=== PATIENT | female | born 1970 | race Caucasian/White ===

== ENCOUNTER 2016-09-23 | Observation (INO) ==
[2016-09-23 00:28] LABS: Basophils # 0.1 K/mcL (0.0-0.2); Basophils % 0.6 %; Eosinophils # 0.1 K/mcL (0.0-0.6); Eosinophils % 1.1 %; Hematocrit 46.7 % (35.3-44.9); Hemoglobin 15.7 g/dL (11.5-15.4); Immature Granulocytes % 0.4 % (0-4); Lymphocytes % 28.6 %; Mean Corpuscular HGB Conc 33.6 g/dL (31.6-35.5); Mean Corpuscular Hemoglobin 29.3 pg (28.0-33.3); Mean Corpuscular Volume 87.1 fL (83.0-100.0); Mean Platelet Volume 9.2 fL (9.4-12.4); Monocytes # 0.6 K/mcL (0.0-1.3); Monocytes % 5.5 %; Neutrophils # 6.7 K/mcL (1.6-8.9); Platelet Count 222 K/mcL (140-400); Red Blood Count 5.36 M/mcL (3.82-4.97); Red Cell Distribution Width 12.7 % (11.5-14.5); Segmented Neutrophils % 63.8 %
[2016-09-23 00:40] LABS: BUN/Creatinine Ratio 15 (6-26); Blood Urea Nitrogen 14 mg/dL (7-20); Calcium 9.4 mg/dL (8.6-10.8); Carbon Dioxide 25 mEq/L (19-29); Chloride 103 mEq/L (98-109); Glucose 120 mg/dL (70-99); Osmolality,Calculated 280 (280-300); Potassium 4.1 mEq/L (3.5-4.5); Sodium 134 mEq/L (136-145); eGFR For African Americans > 60 (> 60); eGFR For Non-African Americans > 60 (> 60)
[2016-09-23] MEDS ORDERED: Aspirin 81 MG TAB.CHEW PO STA (02:38)
[2016-09-23] MEDS ORDERED: Aspirin 81 MG TAB.CHEW ONE (02:40)
[2016-09-23] MEDS ORDERED: Nitroglycerin 0.4 MG TAB.SUBL SL ONE (02:43)
--- NOTE | 2016-09-23 02:51 | Emergency Department Note ---
Disposition Clinical Impression: Chest pain Qualifiers: Chest pain type: unspecified Qualified Code(s): R07.9 - Chest pain, unspecified Disposition: Admitted As Inpatient Condition: Fair Referrals: Milad Rollins CNP [Primary Care Provider] - Forms: ED Satisfaction Letter Time of Disposition: 03:42 Chest Pain HPI - General Chief Complaint: ED Chest Pain Stated Complaint: chest pain Time Seen by Provider: 09/23/16 02:33 Source: patient Mode of arrival: ambulatory Limitations: no limitations Vital Signs Reviewed: Yes Nursing Notes Reviewed: Yes - History of Present Illness HPI Narrative: 46-year-old female with smoking, hypertension, family history of NV, presents with episode of chest pain left-sided chest, associated with nausea vomiting diaphoresis, this happened at rest at 9:00 this evening. She was initially having 6 out of 10 crushing pressure, chest pain, its gradually improved to 2 out of 10. She came in by private vehicle to the emergency department for evaluation, she has never had a catheter or stress test. She denies fever chills productive cough, diarrhea constipation hematuria or dysuria. Pt complaint: chest pain Duration: constant Onset: during rest Pain Location: substernal, left chest Severity: mild Severity scale (1-10): 3 Improves with: nothing Worsens with: nothing Associated symptoms: Reports: nausea, vomiting, diaphoresis, dyspnea Treatments prior to arrival chest pain: none - Related Data Home Medications Medication Instructions Recorded Confirmed Hydrocodone/Acetaminophen [[place] 1 tab PO BID PRN 08/06/15 02/16/16 5-325 Tablet] Melatonin 10 mg PO HS 08/06/15 02/16/16 Montelukast [Singulair] 10 mg PO DAILY 08/06/15 02/16/16 Oxybutynin Chloride [Ditropan Xl] 10 mg PO HS 01/10/16 02/16/16 Biotin 1 mg PO DAILY 02/06/16 02/16/16 Buspirone HCl [Buspar] 20 mg PO TID 02/06/16 02/16/16 HydrOXYzine 10 mg PO TID PRN 02/06/16 02/16/16 Methocarbamol [Robaxin-750] 750 mg PO TID 02/06/16 02/16/16 Mirabegron [Myrbetriq] 50 mg PO HS 02/06/16 02/16/16 Propranolol [Inderal] 20 mg PO BID 02/06/16 02/16/16 diazePAM [Valium] 5 mg PO DAILY PRN MDD 10mg in 24 02/06/16 02/16/16 hours lamoTRIgine [Lamotrigine] 200 mg PO BID 02/06/16 02/16/16 Trazodone HCl 100 mg PO HS PRN 02/16/16 02/16/16 Previous Rx's Medication Instructions Recorded Docusate [Colace] 100 mg PO BID #60 capsule 02/06/16 Clindamycin [Cleocin] 300 mg PO Q6HR 3 Days 02/16/16 Oxycodone HCl/Acetaminophen 1 each PO Q4H PRN #15 tablet 02/16/16 [Percocet 5-325 mg Tablet] Allergies Allergy/AdvReac Type Severity Reaction Status Date / Time Sulfa (Sulfonamide Allergy Difficulty Verified 09/23/16 00:14 Antibiotics) Breathing Penicillins AdvReac See Verified 09/23/16 00:14 Comments All systems ED: reviewed and negative except as stated. Review of Systems: As Per HPI Constitutional: Denies: fever, chills Cardiovascular: Reports: as per HPI, chest pain, dyspnea on exertion. Denies: edema, syncope Respiratory: Reports: as per HPI, cough Gastrointestinal: Reports: nausea, vomiting Genitourinary: Denies: urgency, dysuria Musculoskeletal: Denies: back pain, neck pain Integumentary: Denies: rash Neurological: Denies: headache, weakness Psychiatric: Denies: anxiety, depression Endocrine: Denies: fatigue Chest Pain PMH - Past Medical History Medical history: Reports: COPD, GERD, other Surgical history: Reports: hysterectomy, orthopedic, other, other Psychiatric history: Reports: anxiety, depression MEDIATOR history: Reports: no MEDIATOR history - Social History Smoking Status: Current every day smoker Alcohol use: Reports: none Drug use: Reports: none Physical Exam Constitutional: alert and oriented, in NAD, vital signs reviewed and wnl Neck: normal inspection, neck is supple, no JVD Resp: normal chest inspection, CTA bilaterally, no resp distress, no wheezes/ rales/rhonchi CV: RRR, no murmurs/gallops/rubs, S1 and S2 heard Extremity: +2 bilateral radial and posterial tibial pulses, no pedal edema GI: normal inspection, Soft, NTND, no peritoneal signs, no palpable abdominal aortic aneurysm Back: normal inspection, no tenderness to palpation Neuro: A&O3, no gross motor or sensory deficits bilaterally MSK: normal inspection, bilateral UE and LE with normal ROM Skin: No rashes, skin warm, dry, intact - General General appearance: alert, in no apparent distress Course Course Narrative: 46-year-old female with highly suspicious story, 3 risk factors including family history smoking and obesity, and age, given her heart score of 5. Chest pain arrest, causing her to be diaphoretic, and vomit, added nitroglycerin, her pains improved in the ED to 2. - Reevaluation(s) Reevaluation #1: Admitted to Dr. Perez in stable condition. Time: 03:38 Vital Signs Temperature 97.5 F L 09/23/16 00:11 Pulse Rate 86 09/23/16 00:11 Respiratory Rate 16 09/23/16 00:11 Blood Pressure 129/83 09/23/16 00:11 O2 Sat by Pulse Oximetry 95 09/23/16 00:11 Temperature 97.5 F L 09/23/16 00:11 Pulse Rate 75 09/23/16 02:34 Respiratory Rate 16 09/23/16 02:34 Blood Pressure 122/75 09/23/16 02:34 O2 Sat by Pulse Oximetry 94 09/23/16 02:34 Oxygen Delivery Oxygen Delivery Room Air Chest Pain - Differential Diagnosis Likely: atypical chest pain, chest pain - Medical Records Medical records reviewed: Yes I reviewed the patient's medical records. - Lab Data Lab results reviewed: Yes I reviewed the patient's lab results. Result diagrams: 09/23/16 00:23 09/23/16 00:23 Lab Results 09/23/16 09/23/16 09/23/16 Range/Units 00:23 00:23 00:23 WBC 10.4 (4.3-11.1) K/mcL RBC 5.36 H (3.82-4.97) M/mcL Hgb 15.7 H (11.5-15.4) g/dL Hct 46.7 H (35.3-44.9) % MCV 87.1 (83.0-100.0) fL MCH 29.3 (28.0-33.3) pg MCHC 33.6 (31.6-35.5) g/dL RDW 12.7 (11.5-14.5) % Plt Count 222 (140-400) K/mcL MPV 9.2 L (9.4-12.4) fL Immature Gran % 0.4 (0-4) % Seg Neutrophils % 63.8 % Lymphocytes % 28.6 % Monocytes % 5.5 % Eosinophils % 1.1 % Basophils % 0.6 % Neutrophils # 6.7 (1.6-8.9) K/mcL Lymphocytes # 3.0 (0.6-4.6) K/mcL Monocytes # 0.6 (0.0-1.3) K/mcL Eosinophils # 0.1 (0.0-0.6) K/mcL Basophils # 0.1 (0.0-0.2) K/mcL Sodium 134 L (136-145) mEq/L Potassium 4.1 (3.5-4.5) mEq/L Chloride 103 (98-109) mEq/L Carbon Dioxide 25 (19-29) mEq/L BUN 14 (7-20) mg/dL Creatinine 0.92 (0.57-1.11) mg/dL Est GFR ( Amer) > 60 (> 60) Est GFR (Non-Af Amer) > 60 (> 60) BUN/Creatinine Ratio 15 (6-26) Glucose 120 H (70-99) mg/dL Calculated Osmolality 280 (280-300) Calcium 9.4 (8.6-10.8) mg/dL Troponin I 0.02 (0-0.03) ng/mL - Radiology Data Radiology results reviewed: Yes I reviewed the patient's radiology results. Chest X-Ray 09/23/16 00:02 IMPRESSION: No acute cardiopulmonary process. D/ / Brittany Coronado MD / Brittany Coronado MD Interpreting Provider: Brittany Coronado MD - EKG Data EKG attestation: Yes I reviewed and interpreted this EKG. EKG shows normal: sinus rhythm (82 bpm VA 133 QRS [address] segment elevations or depressions.) Rate: normal Rhythm: NSR [place]/QRS: normal Heart Score - Score History: Highly Suspicious EKG: Normal Age: 45-65 Risk Factors: Equal/Greater than 3 risk factor or history of atherosclerotic disease Troponin: Less than normal limit HEART Score Total: 5
--- NOTE | 2016-09-23 03:05 | Emergency Department Note ---
START Narrative - START START: I examined this patient and my medical decision-making was reviewed with the Resident Physician. I agree with the documented findings, disposition and treatment plan as described except to the extent set forth below. 46 female here for chest pain evaluation. Multiple risk factors. EKG nondiagnostic. Lab work and chest x-ray are normal. Chest pain-free at the moment.
[2016-09-23] MEDS ORDERED: *HR* HYDROcodone/Acet 5/325 mg TABLET PO PRN (03:51)
[2016-09-23] MEDS ORDERED: diazePAM 5 MG TABLET PO PRN (03:51)
[2016-09-23] MEDS ORDERED: traZODone 50 MG TABLET PO PRN (03:51)
[2016-09-23] MEDS ORDERED: Naloxone 0.4 MG/ML INJ IVP PRN (03:52)
[2016-09-23] MEDS ORDERED: Nitroglycerin 0.4 MG TAB.SUBL SL PRN (03:55)
[2016-09-23] MEDS ORDERED: Ipratropium/Albuterol Neb 3 ML IH PRN (03:59)
--- NOTE | 2016-09-23 03:59 | Internal Med History&Physical ---
Date of Encounter: 09/23/16 Time of Encounter: 03:56 Assessment and Plan (1) Chest pain Current visit: Yes Status: Acute admitted for chest pain r/o. trend trop, stress testing (she tells me she has chronic back pain and is unable to exercise), nitro prn Qualifiers: Chest pain type: unspecified Qualified Code(s): R07.9 - Chest pain, unspecified (2) COPD (chronic obstructive pulmonary disease) with acute bronchitis Current visit: Yes Status: Acute she describes to me that she has chronic wheezes. Duonebs QID, prn (3) HTN (hypertension), benign Current visit: Yes Status: Acute continue meds Internal Medicine - H&P: HPI Chief complaint: Chest pain History of present illness: Ms. Bradford is a 46 year old female COPD, depression, HTN who presents with chest pain. She has have chest pain intermittently for the last couple of weeks on and off. However, since 9 pm last evening, she developed 6/10 pressure on the sternal, left chest associated with nausea, emesis and diaphoresis. She smokes 1 -2 PPD for 20-30 years. Family hx significant for STEMI and ' maker disease '. EKG rate 82, NSR, initial trop negative. Past Med Surg Social Fam HX - Past Medical History Medical history: COPD, GERD, other Psychiatric history: anxiety, depression - Past Surgical History Surgical History: hysterectomy, orthopedic, other, other - Social History Smoking Status: Current every day smoker Smokeless Tobacco Status: No Alcohol use: none Drug use: none Internal Medicine - H&P: Meds Hydrocodone/Acetaminophen [[place] 5-325 Tablet] 1 tab PO BID PRN 08/06/15 [ History] Melatonin 10 mg PO HS 08/06/15 [History] Montelukast [Singulair] 10 mg PO DAILY 08/06/15 [History] Oxybutynin Chloride [Ditropan Xl] 10 mg PO HS 01/10/16 [History] Biotin 1 mg PO DAILY 02/06/16 [History] Buspirone HCl [Buspar] 20 mg PO TID 02/06/16 [History] Docusate [Colace] 100 mg PO BID #60 capsule 02/06/16 [Rx] HydrOXYzine 10 mg PO TID PRN 02/06/16 [History] Methocarbamol [Robaxin-750] 750 mg PO TID 02/06/16 [History] Mirabegron [Myrbetriq] 50 mg PO HS 02/06/16 [History] Propranolol [Inderal] 20 mg PO BID 02/06/16 [History] diazePAM [Valium] 5 mg PO DAILY PRN MDD 10mg in 24 hours 02/06/16 [History] lamoTRIgine [Lamotrigine] 200 mg PO BID 02/06/16 [History] Clindamycin [Cleocin] 300 mg PO Q6HR 3 Days 02/16/16 [Rx] Oxycodone HCl/Acetaminophen [Percocet 5-325 mg Tablet] 1 each PO Q4H PRN #15 tablet 02/16/16 [Rx] Trazodone HCl 100 mg PO HS PRN 02/16/16 [History] Allergies Sulfa (Sulfonamide Antibiotics) Allergy (Verified 09/23/16 00:14) Difficulty Breathing Penicillins Adverse Reaction (Verified 09/23/16 00:14) See Comments yeast infection All Systems PM: A 10-system review of systems was performed and is negative for pertinent findings except as documented above in the HPI. Review of systems: ROS 14 point review of systems reviewed as best as possible given presentation. Pertinent positive or negative as per HPI or otherwise reviewed as negative - Constitutional Vitals: Temp Pulse Resp BP Pulse Ox 97.5 F L 75 16 122/75 94 09/23/16 00:11 09/23/16 02:34 09/23/16 02:34 09/23/16 02:34 09/23/16 02:34 Exam: General - AAO x 3 Psych - Appropriate affect/speech. No agitation Eyes - MAGI. Eye lids intact. No scleral icterus ENT - Oral mucosa pink, dentition intact. External ear clear/dry/intact. No thyromegaly Lymphatics - No cervical/inguinal lympadenopathy Neuro - No gross peripheral or central neuro deficits with intact CN 2-12 exam Heart - Sinus. RRR. S1 and S2 present. No added HS/murmurs appreciated. No elevated JVD appreciated. No calf swellings/erythema Lung - Adequate air entry b/l, diffuse wheezes throughout GI - Soft, non-tender. No hepatosplenomegaly/ascities. BS+ - No CVA/suprapubic tenderness or palpable bladder distension Skin - Intact. No rash/petechiae/ecchymosis. Warm extremities MSK - Joints with normal ROM. No joint swellings Internal Med - H&P Results - Labs CBC & Chem 7: 09/23/16 00:23 09/23/16 00:23
[2016-09-23] MEDS: Ipratropium/Albuterol Neb 3 ML IH SCH ×2 (04:24→10:26)
[2016-09-23 06:57] VITALS: BP 101/63
[2016-09-23] MEDS ORDERED: BUSPIRONE HCL PO SCH (09:00)
[2016-09-23] MEDS ORDERED: BUSPIRONE HCL 20 MG PO SCH (09:00)
[2016-09-23] MEDS ORDERED: lamoTRIgine 100 MG TABLET PO SCH (09:00)
[2016-09-23] MEDS ORDERED: BIOTIN PO SCH (09:00)
--- NOTE | 2016-09-23 11:07 | Discharge Summary ---
Date of Encounter: 09/23/16 Time of Encounter: 09:30 (and 1045) - Discharge Diagnosis (1) Chest pain Priority: Primary Status: Acute Comments: Patient was continuing to have bouts of chest pain and chest pressure but yet she decided to leave AMA before her stress test could not be completed because we are not allowing her to smoke. She declined Nicotine replacement therapy. Qualifiers: Chest pain type: unspecified Qualified Code(s): R07.9 - Chest pain, unspecified (2) Tobacco dependence Priority: Secondary Status: Chronic Comments: Unfortunately, patient signed herself out AMA because she was informed of hospital policy that would preclude her from smoking. She states that she smokes since she was 10 years old and has no desire to stop (3) HTN (hypertension), benign Priority: Secondary Status: Chronic Comments: Normotensive without the use of antihypertensive medications. Recommend daily blood pressure checks at home, and keeping a log for primary care provider. (4) COPD (chronic obstructive pulmonary disease) with acute bronchitis Priority: Secondary Status: Chronic Comments: Patient denies shortness of breath above her norm. Diffuse expiratory wheezing with fair aeration noted throughout. She is only on Singulair and albuterol, will add Symbicort to her regimen and have follow-up outpatient - Discharge Medications Prescriptions: Budesonide/Formoterol 160/4.5 [Symbicort 160/4.5] 2 puff IH BIDR #1 hfa.aer.ad Home Medications: Hydrocodone/Acetaminophen [[place] 5-325 Tablet] 1 tab PO BID PRN 08/06/15 [ History] Melatonin 10 mg PO HS 08/06/15 [History] Montelukast [Singulair] 10 mg PO DAILY 08/06/15 [History] Biotin 1 mg PO DAILY 02/06/16 [History] Buspirone HCl [Buspar] 20 mg PO TID 02/06/16 [History] HydrOXYzine 10 mg PO TID PRN 02/06/16 [History] Propranolol [Inderal] 20 mg PO BID 02/06/16 [History] diazePAM [Valium] 5 mg PO DAILY PRN MDD 10mg in 24 hours 02/06/16 [History] Trazodone HCl 150 mg PO HS PRN 02/16/16 [History] Budesonide/Formoterol 160/4.5 [Symbicort 160/4.5] 2 puff IH BIDR #1 hfa.aer.ad 09/23/16 [Rx] lamoTRIgine [Lamictal] 100 mg PO HS 09/23/16 [History] lamoTRIgine [Lamictal] 150 mg PO QAM 09/23/16 [History] Allergies/Adverse Reactions: Allergies Sulfa (Sulfonamide Antibiotics) Allergy (Verified 09/23/16 00:14) Difficulty Breathing Penicillins Adverse Reaction (Verified 09/23/16 00:14) See Comments yeast infection Procedures/tests Complete & Pending: Procedures Performed prior 72 hours Category Date Time Status NM jennie perf SPECT multi [NM] Routine Exams 09/23/16 08:17 Taken SP pharm nuclear stress Routine Y 09/24/16 08:16 Ordered Date of admission: 09/23/16 03:45 Primary care physician: Milad Rollins CNP Discharging clinician: Tracy Nino Anticipated date of discharge: 09/23/16 (AMA- advised of risks) - Patient Status Disposition: Left Against Medical Advice Condition: Fair Functional capacity at discharge: independent ambulation Overall status at discharge: patient is not back to baseline - Discharge Instructions Follow Up With: Milad Rollins CNP [Primary Care Provider] - Additional Instructions: Follow-up with your primary care provider as soon as possible - Diet and Activity Activity: increase activity as tolerated Diet: low fat, low cholesterol Hospital course: Ms. Bradford is a 46 year old female with past medical history of COPD, depression , hypertension, tobacco abuse. Patient is a heavy smoker one to 2 packs per day since she was 10 years old. Workup in the emergency department unremarkable. Chest x-ray negative. Patient was normotensive without the use of antihypertensive medications. She was admitted to the hospitalist service for further evaluation and treatment. Just prior to her nuclear stress test, the patient had drank her home beverage that was a power added to water. She was not aware that this mixture had caffeine in it. She states that she stopped drinking caffeine 3 years ago, and began to use these packets numerous times per day in place of it. She states that she thought the vitamin B was giving her energy, and was not aware that these packets she has been using for 3 years had caffeine. She states that on the morning of presentation, she had just finished drinking two of these caffeinated bottles when her chest pain worsened. Because she had drank caffeine, her stress test had been pushed back to the next day. Patient was informed that she cannot smoke while admitted. She was offered nicotine replacement therapy but declined it. She became extremely upset and started to cry and yell that if she could not smoke, she was going home. She was advised of the risks of choosing to not continue treatment and evaluation, but she stated she was leaving and stated, "I've smoke since I was 10 years old. You are not going to stop me so I'm leaving." Emailed her PCP to see if she could do the rest of her test outpatient but she was advised that she needs to abstain from smoking before the test. She was still having chest pressure while admitted and she was informed that getting a stress test was important. On examination, her aeration was poor with diffuse expiratory wheezing even though she denied shortness of breath above her norm. Symbicort was added to her regimen. She left AMA and was aware of the risks. Troponins negative x2. ITS Impressions Chest X-Ray 09/23/16 00:02 IMPRESSION: No acute cardiopulmonary process. D/ / Brittany Coronado MD / Brittany Coronado MD Interpreting Provider: Brittany Coronado MD - Time Spent with Patient Total time spent providing and/or coordinating discharge services: - Constitutional Vitals: Temp Pulse Resp BP Pulse Ox 97.7 F 76 14 101/63 94 09/23/16 06:52 09/23/16 06:52 09/23/16 06:52 09/23/16 06:52 09/23/16 06:52 General appearance: Present: A&O X 3, no acute distress, answers questions appropriately. Absent: cooperative - Head Head exam: Present: atraumatic, normocephalic - Eye Eye exam: Present: PERRL, conjuntiva pink, sclera anicteric Pupils: Present: PERRL - Neck Neck exam general surgery: Present: supple, trachea midline. Absent: lymphadenopathy - Respiratory Respiratory exam: Present: decreased breath sounds, prolonged expiratory phase, wheezes. Absent: accessory muscle use, rales, respiratory distress, rhonchi - Cardiovascular Cardiovascular exam: Present: RRR, +S1, +S2. Absent: diastolic murmur, gallop, rubs, systolic murmur - GI/Abdominal GI/Abdominal exam: Present: normal bowel sounds, soft, no peritoneal signs. Absent: distended, tenderness - Extremities Exam Extremities exam: Present: warm, radial pulses palpable and symetrical. Absent : calf tenderness, cyanotic, pedal edema - Neurological Exam Neurological exam: Present: alert, CN II-XII intact, oriented X3, no focal deficits, strengths equal and symetr throughout. Absent: pronater drift, facial droop, speech deficit - Skin Skin exam: Present: dry, intact, pallor, warm
--- NOTE | 2016-09-23 17:54 | Electrocardiograph Report ---
[address] [place], [place] [address] Test Date: 2016-09-22 Pat Name: Meseret Bradford Department: 2000 Room: 3B Gender: F Panel Fitter: : 1970 Requested By: Tracy Nino Order Number: [id number] Reading MD: Kailee Roland Measurements Intervals [place] Rate: 94 P: 74 [place]: 134 QRS: 81 QRSD: 102 T: 61 QT: 359 QTc: 410 Interpretive Statements SINUS RHYTHM Electronically Signed On 09-23-2016 17:52:29 EDT by Kailee Roland
--- NOTE | 2016-09-23 17:56 | Electrocardiograph Report ---
[place] [address] Test Date: 2016-09-23 Pat Name: Meseret Bradford Department: 102 Room: 3B Gender: F Computer Technologist: Jeremy : 1970 Requested By: Jaxson Nova Order Number: [id number] Reading MD: Kailee Roland Measurements Intervals [place] Rate: 82 P: 73 [place]: 133 QRS: 80 QRSD: 101 T: 64 QT: 387 QTc: 425 Interpretive Statements SINUS RHYTHM LOW QRS VOLTAGE IN PRECORDIAL LEADS Electronically Signed On 09-23-2016 17:55:11 EDT by Kailee Roland
[2016-09-23] MEDS ORDERED: Melatonin 3 MG TABLET PO SCH (21:00)
--- NOTE | 2016-09-26 14:31 | Nuclear Medicine Stress Report ---
Exercise Nuclear Stress 2 day Name: Meseret Bradford Date of Study: 09/23/2016 Date: 1970 Ht: 66.0 in Medical Record#: [id number] Age: 46 Wt: 195.0 lb Gender: Female Order #: [id number] Location: [facility] Room: [facility] Supervising Provider: Danuta Pedroza CNP Reading Physician: Kailee Roland DO Ordering Physician: Tracy Nino CNP Primary Care Physician: Milad Rollins CNP Oracle Applications Developer: June Mast Indications: Chest Pain Impression: Incomplete study. Stress portion was not performed. Resting perfusion demonstrates a mild intensity distal anterior wall defect. Stress Test Summary: Baseline Information: Stress Information: Nuclear Summary: SPECT myocardial perfusion imaging using Tc99m Sestamibi given intravenously was performed at rest. The resting images were obtained following initial dose of 10.1 mCi. Findings: Study Quality * Incomplete study. Stress portion was not performed. PERFUSION * Resting perfusion demonstrates a mild intensity distal anterior wall defect. Updated by Kailee Roland on 09/26/2016 2:23:16 PM electronically signed on 09/26/2016 2:25:02 PM with status of Final
== END 2016-09-23 12:00 | disposition left against medical advice (07) ==
LOC: 3BNU → EMEROO → 3BNU 04:32
PROVIDERS: ADMIT Internal Medicine Hematology & Oncology; ATTEND Nurse Practitioner Family